=== PATIENT | male | born 1950 | race Caucasian/White ===

== ENCOUNTER 2016-11-21 12:41 | Inpatient (IN) | payer BC, OTHER ==
[~2016-11-21] VITALS: Ht 167.6 cm; Wt 58.7 kg
--- NOTE | ~2016-11-21 | OP ---
Record Of Operation [facility] [address] [place]. [address] NAME: SHABBIR CHAMBERLAIN : 48 STATUS : ADM IN PAT#: [id number] AGE: 66 ADM/REG DATE : 11/21/16 MR#: [id number] REPORT SERV DATE: 11/22/16 DICTATED BY: VANESA BROWN DATE: 11/21/16 REPORT STATUS : Draft TRANSCRIBED BY: MODL DATE: 11/21/16 DATE OF PROCEDURE: 11/21/2016 PREOPERATIVE DIAGNOSIS: Left carotid stenosis with stroke. POSTOPERATIVE DIAGNOSIS: Left carotid stenosis with stroke. PROCEDURE: Left carotid endarterectomy. FELLOW: Nicolasa. ANESTHESIA: General. COMPLICATIONS: None. BLOOD LOSS: 100 mL. HISTORY: The patient is a 66-year-old male, seen previously at [facility] with a left hemispheric stroke and a high-grade left carotid stenosis. Plan was for surgery within a week of that admission; however, he was lost to follow up until now. It was felt that he would benefit from left carotid endarterectomy. This was discussed in detail with the patient. He expressed understanding and desired to proceed. DESCRIPTION OF PROCEDURE: The patient was taken to the operating room and placed in the supine position. He was given general anesthesia without complication. Roll was placed under his shoulders. Head was turned to the right. Incision was created on the anterior border of sternocleidomastoid muscle on the left, taking care to be more than one fingerbreadth away from the angle of the mandible. Bovie cautery was used to dissect through subcutaneous tissues and platysma. The sternocleidomastoid muscle was identified and dissection continued on the anterior border of it. The internal jugular vein and common facial vein were identified. The common facial vein was freed circumferentially, ligated with 2-0 silk ties and divided. Dissection was continued on the anterior border of the internal jugular vein exposing the common carotid artery. This was freed circumferentially and isolated with a vessel loop. The external carotid artery was identified, freed circumferentially, and isolated with vessel loop. The internal carotid artery was freed circumferentially beyond the area of disease and isolated with a vessel loop. The patient was given 6000 units of heparin intravenously. After more than 3 minutes of heparinization, the internal carotid artery was controlled with a vessel loop followed by the common carotid artery and external carotid artery. An 11 blade was used to create an arteriotomy on the common carotid artery. This was extended longitudinally onto the internal carotid artery beyond the area of disease. A 12 shunt was placed into the internal carotid artery. Once good back bleeding was noted, this was placed into the common carotid artery restoring flow to the brain. Endarterectomy was performed in a standard fashion with feathering of the proximal and distal end point and eversion endarterectomy on the external carotid artery. A single 7-0 Prolene tacking suture was used on the distal end point. The endarterectomy site was copiously irrigated and all loose debris was removed. Once this was felt to be Record Of Operation [facility] [id number] [facility] [place]. [address] NAME: SHABBIR CHAMBERLAIN : 48 STATUS : ADM IN [facility]#: [id number] AGE: 66 ADM/REG DATE : 11/21/16 MR#: [id number] REPORT SERV DATE: 11/22/16 DICTATED BY: VANESA BROWN DATE: 11/21/16 REPORT STATUS : Draft TRANSCRIBED BY: AL DATE: 11/21/16 adequate, the carotid artery was closed using 8 x 80 bovine pericardial patch and running 6- 0 Prolene suture. Prior to completion, the shunt was pulled from the lateral aspect of the artery. The internal and external carotid arteries were back bled. The common carotid artery was flushed. The endarterectomy site was copiously irrigated. The closure was completed and flow was restored to the external carotid artery, then after more than 5 heartbeats to the internal carotid artery. Hemostasis was assured and fibrillar placed over the patch. The deep tissues and platysma closed were with 2-0 Vicryl suture. Skin was closed with 4-0 Monocryl suture and Dermabond dressing applied. The patient tolerated the procedure well. He will be extubated in the operating room, if neurologically intact, taken to the recovery room. KHLOE/AL Vanesa Brown M.D. / [id number] CC: Vanesa Brown M.D.
--- NOTE | ~2016-11-21 | HP ---
History And Physical [address] [place]. [address] NAME: SHABBIR CHAMBERLAIN : 48 STATUS : ADM IN [facility]#: [id number] AGE: 66 ADM/REG DATE : 11/21/16 MR#: [id number] REPORT SERV DATE: 11/21/16 DICTATED BY: VANESA BROWN DATE: 11/21/16 REPORT STATUS : Draft TRANSCRIBED BY: MODKrish DATE: 11/21/16 DATE OF ADMISSION: 11/21/2016 HISTORY: The patient is a 66-year-old male with a history of left carotid stenosis and left hemispheric stroke in September. He was seen then at [facility] and plan was for a carotid endarterectomy within a week, however, he was lost to follow up. On presentation today, he has some residual deficits of his stroke including some weakness on his right side and aphasia. He denies any new stroke-type symptoms. He has no other current health complaints. REVIEW OF SYSTEMS: He denies fever, chills, or stomach complaints. He denies chest pain or palpitations. He denies shortness of breath or cough. He denies any GI or complaints. PAST MEDICAL HISTORY, MEDICATIONS, AND ALLERGIES: Listed full on the MAR. ILLNESSES: Coronary artery disease, COPD, hyperlipidemia. SURGICAL HISTORY: Significant for appendectomy and hernia repair. SOCIAL HISTORY: Significant for one pack per day tobacco use and social alcohol use. FAMILY HISTORY: Noncontributory. PHYSICAL EXAMINATION: GENERAL: The patient is in no distress. VITAL SIGNS: Normal. LUNGS: Clear. HEART: Regular. ABDOMEN: Soft and nontender. NEUROLOGIC: He has some mild weakness on his right side. He has aphasia as well. LABORATORY STUDIES: CT scan shows a high-graded left carotid stenosis. IMPRESSION: High-graded left carotid stenosis with recent stroke. Plan is for left carotid endarterectomy. The risks, benefits, and alternatives were discussed in detail with the patient. KHLOE/AL Vanesa Brown M.D. / [id number] History And Physical [address] [address] NAME: SHABBIR CHAMBERLAIN : [birth year] STATUS : ADM IN PAT#: [id number] AGE: 66 ADM/REG DATE : 11/21/16 MR#: [id number] REPORT SERV DATE: 11/21/16 DICTATED BY: VANESA BROWN DATE: 11/21/16 REPORT STATUS : Draft TRANSCRIBED BY: MODL DATE: 11/21/16 CC: Vanesa Brown M.D.
[~2016-11-21 12:41] MED LIST: ASAB PO; ATROVENTUD INH; CRESTOR10 PO; CYANO1000T PO; DUONEB INH; FLONASE NAS; NEUR600 PO; PLAVIX PO; PRAV10 PO; ZESTRIL10 MG PO
[2016-11-21 13:31] LABS: BASOPHILS 0.8 %; BASOPHILS ABSOLUTE 0.06 10/3/uL (0.0-0.16); EOSINOPHILS 2.6 %; EOSINOPHILS ABSOLUTE 0.19 10/3/uL (0.0-0.53); HEMATOCRIT 40.9 % (40.0-51.0); HEMOGLOBIN 14.1 g/dL (13.6-17.8); IMMATURE GRANULOCYTES 0.1 %; IMMATURE GRANULOCYTES ABSOLUTE 0.01 10/3/uL (0.0-0.11); LYMPHOCYTES ABSOLUTE 2.26 10/3/uL (0.67-4.30); MANUAL DIFF NO %; MEAN CORPUS HGB CONC 34.5 g/dL (32.0-36.0); MEAN CORPUSCULAR HEMOGLOB 35.6 pg (26.0-34.0); MEAN CORPUSCULAR VOLUME 103.3 fL (80-100); MONOCYTES 15.4 %; MONOCYTES ABSOLUTE 1.12 10/3/uL (0.21-1.20); NEUTROPHILS 50.1 %; NEUTROPHILS ABSOLUTE 3.64 10/3/uL (2.02-8.40); PLATELET COUNT 420 10/3/uL (150-400); RBC DISTRIBUTION WIDTH 13.7 % (12.0-16.0); RED CELL COUNT 3.96 10/6/uL (4.7-6.1); WHITE BLOOD CELLS 7.3 10/3/uL (4.5-10.5)
[2016-11-21 13:41] LABS: BUN (BLOOD UREA NITROGEN) 15 MG/DL (6-23); CALCIUM, SERUM 9.7 MG/DL (8.5-10.4); CHLORIDE, SERUM 100 MMOL/L (96-112); CO2 (CARBON DIOXIDE) 29 MMOL/L (24-34); GFR AFRICAN AMERICAN 102 ML/MIN (>=60); GFR NON AFRICAN AMERICAN 88 ML/MIN (>=60); GLUCOSE, SERUM 76 MG/DL (60-99); POTASSIUM, SERUM 3.8 MMOL/L (3.5-5.3); SODIUM, SERUM 135 MMOL/L (135-148)
[2016-11-22] MEDS ORDERED: PCET PO (09:05)
== END 2016-11-22 13:50 | disposition home or self-care (01) | DRG 38 ==
LOC: ENRESERV → ENRESERVDT → ENRESERVTM → CVICU 12:41 → SDC/OF 12:41 → CVICU 19:05
PROVIDERS: Surgery
PROC: 03CN0ZZ Extirpation of Matter from Left External Carotid Artery, Open Approach (ICD-10-PCS; principal; 2016-11-21 15:15)
DX: I63.232 Cerebral infarction due to unspecified occlusion or stenosis of left carotid arteries (principal); I69.351 Hemiplegia and hemiparesis following cerebral infarction affecting right dominant side; J44.9 Chronic obstructive pulmonary disease, unspecified; I25.10 Atherosclerotic heart disease of native coronary artery without angina pectoris; E78.5 Hyperlipidemia, unspecified; Z90.49 Acquired absence of other specified parts of digestive tract; Z98.890 Other specified postprocedural states; F17.210 Nicotine dependence, cigarettes, uncomplicated; R47.01 Aphasia; Z95.5 Presence of coronary angioplasty implant and graft
CPT/HCPCS: 80048; 85025; 87641; 88304; 88311; 93005; 94640; A9270-GY; J0690; J2250; J2370; J2405; J2710; J3010